=== PATIENT | female | born 1965 | race Caucasian/White ===

== ENCOUNTER 2016-06-13 10:27 | Emergency (ER) | payer OTHER ==
[2016-06-13] MEDS ORDERED: LIDOCAINE 1% MDV 20 ML ONE (12:38)
[2016-06-13] MEDS ORDERED: [UNRECOGNIZED DRUG - OTHER] IV ONE (14:24)
[2016-06-13] MEDS ORDERED: KCL CR 20 MEQ TAB PO ONE (14:24)
[2016-06-13] MEDS ORDERED: POTASSIUM CHLOR 10 MEQ IV ONE (14:24)
[2016-06-13] MEDS ORDERED: SODIUM CHLORIDE 0.9% 1,000 ML ONE (14:34)
[2016-06-13] MEDS ORDERED: LORAZEPAM 2 MG/ML VIAL ONE (14:40)
[2016-06-13] MEDS ORDERED: POTASSIUM CHLOR 10MEQ -ED ONLY 50 ML IV ONE (14:49)
[2016-06-13] MEDS ORDERED: PROMETHAZINE 25 MG/ML VIAL ONE (15:03)
[2016-06-13] MEDS ORDERED: MORPHINE 2 MG/ML SYR ONE (15:04)
[2016-06-13] MEDS ORDERED: SODIUM CHLORIDE 0.9% 500 ML IV ONE (16:45)
== END 2016-06-13 18:13 | disposition home or self-care (01) ==
LOC: ER 10:27
DX: R41.82 Altered mental status, unspecified (principal); R56.9 Unspecified convulsions; E87.6 Hypokalemia; I10 Essential (primary) hypertension; E78.5 Hyperlipidemia, unspecified; E03.9 Hypothyroidism, unspecified; K21.9 Gastro-esophageal reflux disease without esophagitis; J45.909 Unspecified asthma, uncomplicated
CPT/HCPCS: 36415; 70450; 71010; 80053; 80307; 80320; 81001; 82945; 82947; 84157; 85025; 85610; 87071; 87205; 87498; 87529; 87798; 89051; 93005; 96361; 96365; 96366; 96375